=== PATIENT | female | born 1940 | race Caucasian/White ===

== ENCOUNTER 2016-10-06 07:40 | Emergency (ER) | payer MEDICARE | END 2016-10-06 10:35 | disposition home or self-care (01) | LOC: ER1 07:40 | DX: S62.322A Displaced fracture of shaft of third metacarpal bone, right hand, initial encounter for closed fracture (principal); S60.211A Contusion of right wrist, initial encounter; Z85.3 Personal history of malignant neoplasm of breast; Z90.11 Acquired absence of right breast and nipple; W18.39XA Other fall on same level, initial encounter; Y92.009 Unspecified place in unspecified non-institutional (private) residence as the place of occurrence of the external cause | CPT/HCPCS: 29125; 71101; 73110; 73130; 99284 ==

== ENCOUNTER → 2020-06-11 | Outpatient (CLI) | payer MEDICARE ==
[~2020-06-11] MED LIST: ALENDRONATE SOD70 MG PO; ANASTROZOLE1 MG PO; ATORVASTATIN CA10 MG PO; CALTRATE 600 +1 EACH PO; CARVEDILOL6.25 MG PO; CENTRUM SILVER1 EAC1 PO; COZAAR 50MG TAB50 MG PO; COZAAR25 MG PO; FISH OIL 1,0001 EACH PO; FUROSEMIDE40 MG PO; HYGROTON TAB 2525 MG PO; LIDOPATCH1 EACH TP; LIPITOR TAB 1010 MG PO; NORCO 5-325 TA1 EACH PO; TOLTERODINE TART4 MG PO; VITAMIN D250000 UNIT PO
== END ==
LOC: EXRD 14:06
DX: D70.2 Other drug-induced agranulocytosis (principal); M81.0 Age-related osteoporosis without current pathological fracture; I82.91 Chronic embolism and thrombosis of unspecified vein; K59.00 Constipation, unspecified; M85.88 Other specified disorders of bone density and structure, other site
CPT/HCPCS: 77080

== ENCOUNTER 2020-11-08 21:10 | Inpatient (IN) | payer MEDICARE ==
[~2020-11-08] VITALS: Ht 157.5 cm; Wt 101.2 kg
[2020-11-08 22:58] LABS: HEMOGLOBIN 13.5 gm/dl (12.3-15.3); RED BLOOD COUNT 4.52 M/UL (4.00-5.10); WHITE BLOOD COUNT 12.6 K/UL (4.5-11.0)
[2020-11-09 08:02] LABS: RED BLOOD COUNT 4.33 M/UL (4.00-5.10); WHITE BLOOD COUNT 13.7 K/UL (4.5-11.0)
[2020-11-10 04:54] LABS: HEMOGLOBIN 12.2 gm/dl (12.3-15.3); RED BLOOD COUNT 3.96 M/UL (4.00-5.10)
[2020-11-10 05:00] LABS: WHITE BLOOD COUNT 6.2 K/UL (4.5-11.0)
[2020-11-11 04:30] LABS: HEMOGLOBIN 11.4 gm/dl (12.3-15.3); RED BLOOD COUNT 3.65 M/UL (4.00-5.10)
[2020-11-11 04:38] LABS: WHITE BLOOD COUNT 3.3 K/UL (4.5-11.0)
[2020-11-13] MEDS ORDERED: LEVOFLOXACIN500 MG PO (07:58)
== END 2020-11-13 15:37 | disposition home or self-care (01) | DRG 603 ==
LOC: ER1 21:10 → CDU 23:51 → MED SURG 4 23:51
PROVIDERS: Internal Medicine; Physician Assistant; ADMIT Internal Medicine
DX: L03.113 Cellulitis of right upper limb (principal); Z68.41 Body mass index [BMI] 40.0-44.9, adult; I10 Essential (primary) hypertension; E78.5 Hyperlipidemia, unspecified; E66.01 Morbid (severe) obesity due to excess calories; E87.6 Hypokalemia; Z20.822 Contact with and (suspected) exposure to COVID-19; H92.01 Otalgia, right ear; M81.0 Age-related osteoporosis without current pathological fracture; Z80.8 Family history of malignant neoplasm of other organs or systems; Z85.3 Personal history of malignant neoplasm of breast; Z90.11 Acquired absence of right breast and nipple
CPT/HCPCS: 36415; 80048; 80053; 80202; 83605; 83735; 85025; 85027; 87040; 99284; J1650; J1885; J1956; J3370; J7070; U0002

== ENCOUNTER → 2021-05-11 | Outpatient (CLI) | payer MEDICARE ==
[~2021-05-11] MED LIST changes: +LEVOFLOXACIN500 MG PO
== END ==
LOC: HEART 5 05-04 15:30
DX: I08.8 Other rheumatic multiple valve diseases (principal); R06.02 Shortness of breath; I50.30 Unspecified diastolic (congestive) heart failure
CPT/HCPCS: 93306

== ENCOUNTER → 2021-09-22 | Outpatient (CLI) | payer MEDICARE ==
[~2021-09-22] MED LIST changes: +VITAMIN B-12100 MCG PO; +VITAMIN D3250 MCG PO
[2021-09-22 11:27] LABS: HEMOGLOBIN 14.3 gm/dl (12.3-15.3); RED BLOOD COUNT 4.58 M/UL (4.00-5.10); WHITE BLOOD COUNT 4.7 K/UL (4.5-11.0)
== END ==
LOC: LAB 10:26
PROVIDERS: Internal Medicine Cardiovascular Disease
DX: I11.0 Hypertensive heart disease with heart failure (principal); I50.32 Chronic diastolic (congestive) heart failure; I08.0 Rheumatic disorders of both mitral and aortic valves; R94.31 Abnormal electrocardiogram [ECG] [EKG]; R06.02 Shortness of breath; R91.8 Other nonspecific abnormal finding of lung field
CPT/HCPCS: 36415; 71046; 80048; 85025

== ENCOUNTER → 2021-09-24 | Outpatient (CLI) | payer MEDICARE | END | disposition home or self-care (01) | LOC: CATH 07:19 | DX: I35.0 Nonrheumatic aortic (valve) stenosis (principal); I11.0 Hypertensive heart disease with heart failure; I50.32 Chronic diastolic (congestive) heart failure; I49.5 Sick sinus syndrome; E66.9 Obesity, unspecified; M19.90 Unspecified osteoarthritis, unspecified site; Z68.38 Body mass index [BMI] 38.0-38.9, adult; Z79.899 Other long term (current) drug therapy | CPT/HCPCS: 99152; 99153; C1751; C1760; C1769; J1644; J2250; J3010; J7040; Q9967 ==